=== PATIENT | female | born 1990 | race Caucasian/White ===

== ENCOUNTER 2018-01-24 15:06 | Emergency (ER) | payer BC, MEDICAID ==
[~2018-01-24] VITALS: Ht 180.3 cm; Wt 165.6 kg
[~2018-01-24 15:06] MED LIST: BIRTH CONTROL; ELET20TA PO
[2018-01-24 16:03] VITALS: BP 175/98
[2018-01-24 16:24] LABS: Basophils # (auto) 0.1 uL; Basophils % (auto) 0.5 % (0.0-2.0); Eosinophils # (auto) 0.1 uL; Eosinophils % (auto) 1.5 % (0.0-7.0); Hematocrit 41.6 % (36.0-46.0); Hemoglobin 13.8 g/dL (12.2-16.2); Lymphocytes # (auto) 2.3 uL; Lymphocytes % (auto) 23.7 % (10.0-50.0); Mean Corpuscular Hemoglobin 28.2 pg (28.0-32.0); Mean Corpuscular Hgb Conc. 33.3 g/dL (32.0-36.0); Mean Corpuscular Volume 84.7 fL (80.0-100.0); Monocytes # (auto) 0.6 uL; Monocytes % (auto) 5.9 % (0.0-12.0); Neutrophils # (auto) 6.6 uL; Neutrophils % (auto) 68.4 % (37.0-80.0); Nucleated Red Blood Cells % 0.1 %; Platelet Count (auto) 314 10^3/uL (140-450); Red Blood Cells 4.91 10^6/uL (4.0-5.20); Red Cell Distribution Width 13.3 % (11.8-14.3); White Blood Cell 9.6 10^3/uL (4.4-10.8)
[2018-01-24 16:45] LABS: Urine Bacteria NONE SEEN /hpf (None Seen); Urine Blood 2+ /uL (Negative); Urine Mucus FEW (None Seen); Urine Specific Gravity 1.016 (1.001-1.035); Urine WBC 7 /hpf (0 - 5)
[2018-01-24 16:52] LABS: Albumin 3.5 g/dL (3.4-5.0); Calcium 8.9 mg/dL (8.5-10.1); Potassium 3.9 mmol/L (3.5-5.1)
[2018-01-24 16:56] LABS: BUN/Creatinine Ratio 10.8; Bilirubin, Total 0.4 mg/dL (0.2-1.0); Total Protein 7.7 g/dL (6.4-8.2)
[2018-01-24] MEDS ORDERED: cefTRIAXone SOD 1,000 MG VL IM ONE (17:15)
[2018-01-24] MEDS ORDERED: LIDOCAINE 1%HCL (LOCAL ANESTH) 10 ML MDV ONE (17:17)
[2018-01-24] MEDS ORDERED: cefTRIAXone SOD 1,000 MG VL ONE (17:17)
== END 2018-01-24 17:22 | disposition home or self-care (01) ==
LOC: ER 15:20
DX: N39.0 Urinary tract infection, site not specified (principal); Z88.8 Allergy status to other drugs, medicaments and biological substances; Z87.442 Personal history of urinary calculi
CPT/HCPCS: 36415; 80053; 81001; 85025; 94761; 96372; 99284; J0696; J2001

== ENCOUNTER 2018-07-03 16:08 | Emergency (ER) | payer MEDICAID ==
[~2018-07-03] VITALS: Ht 180.3 cm; Wt 167.8 kg
[2018-07-03 16:17] VITALS: BP 126/68
[2018-07-03 16:41] LABS: Basophils # (auto) 0.1 uL; Basophils % (auto) 0.6 % (0.0-2.0); Eosinophils # (auto) 0.2 uL; Eosinophils % (auto) 1.6 % (0.0-7.0); Lymphocytes # (auto) 2.4 uL; Lymphocytes % (auto) 23.1 % (10.0-50.0); Mean Corpuscular Hemoglobin 28.1 pg (28.0-32.0); Mean Corpuscular Hgb Conc. 33.4 g/dL (32.0-36.0); Mean Corpuscular Volume 84.3 fL (80.0-100.0); Monocytes # (auto) 0.9 uL; Monocytes % (auto) 8.6 % (0.0-12.0); Neutrophils # (auto) 6.9 uL; Neutrophils % (auto) 66.1 % (37.0-80.0); Nucleated Red Blood Cells % 0.1 %; Platelet Count (auto) 343 10^3/uL (140-450); Red Blood Cells 4.99 10^6/uL (4.0-5.20); Red Cell Distribution Width 13.2 % (11.8-14.3); White Blood Cell 10.4 10^3/uL (4.4-10.8)
[2018-07-03 16:44] LABS: Urine Bacteria NONE SEEN /hpf (None Seen); Urine Blood Negative /uL (Negative); Urine Specific Gravity 1.008 (1.001-1.035); Urine WBC 2 /hpf (0 - 5)
[2018-07-03 16:55] LABS: Albumin 3.5 g/dL (3.4-5.0); BUN/Creatinine Ratio 14.5; Calcium 8.8 mg/dL (8.5-10.1); Potassium 3.9 mmol/L (3.5-5.1)
[2018-07-03 16:59] LABS: Bilirubin, Total 0.3 mg/dL (0.2-1.0); Total Protein 7.8 g/dL (6.4-8.2)
== END 2018-07-03 17:40 | disposition left against medical advice (07) ==
LOC: ER 16:12
DX: R10.9 Unspecified abdominal pain (principal); Z53.21 Procedure and treatment not carried out due to patient leaving prior to being seen by health care provider
CPT/HCPCS: 36415; 80053; 81001; 85025

== ENCOUNTER 2018-07-04 07:27 | Inpatient (IN) | payer MEDICAID ==
[~2018-07-04] VITALS: Ht 180.3 cm; Wt 51.7 kg
[2018-07-04] MEDS ORDERED: PANTOPRAZOLE 40 MG/10 ML VIAL IV STA (08:42)
[2018-07-04] MEDS ORDERED: SODIUM CHLORIDE 0.9% 500 ML IVB ONE (08:42)
[2018-07-04] MEDS ORDERED: MORPHINE SULFATE 4 MG/ML SYR/VIAL IV ONE (08:45)
[2018-07-04] MEDS ORDERED: ONDANSETRON HCL 4 MG/2 ML VIAL IV ONE (08:45)
[2018-07-04 09:06] LABS: Basophils # (auto) 0.1 uL; Basophils % (auto) 1.1 % (0.0-2.0); Eosinophils # (auto) 0.1 uL; Eosinophils % (auto) 1.2 % (0.0-7.0); Hematocrit 42.3 % (36.0-46.0); Hemoglobin 13.5 g/dL (12.2-16.2); Lymphocytes # (auto) 2.1 uL; Lymphocytes % (auto) 23.1 % (10.0-50.0); Mean Corpuscular Hemoglobin 28.1 pg (28.0-32.0); Mean Corpuscular Hgb Conc. 31.9 g/dL (32.0-36.0); Monocytes # (auto) 0.6 uL; Monocytes % (auto) 6.2 % (0.0-12.0); Neutrophils # (auto) 6.3 uL; Neutrophils % (auto) 68.4 % (37.0-80.0); Nucleated Red Blood Cells % 0.1 %; Platelet Count (auto) 382 10^3/uL (140-450); Red Blood Cells 4.81 10^6/uL (4.0-5.20); Red Cell Distribution Width 13.3 % (11.8-14.3); White Blood Cell 9.3 10^3/uL (4.4-10.8)
[2018-07-04 09:23] LABS: Albumin 3.2 g/dL (3.4-5.0); Calcium 8.5 mg/dL (8.5-10.1); Potassium 4.4 mmol/L (3.5-5.1)
[2018-07-04 09:26] LABS: BUN/Creatinine Ratio 13.7; Bilirubin, Total 0.2 mg/dL (0.2-1.0); Total Protein 7.3 g/dL (6.4-8.2)
[2018-07-04] MEDS ORDERED: TEMAZEPAM 15 MG CAP PO PRN (10:30)
[2018-07-04] MEDS ORDERED: PROMETHAZINE HCL 25 MG/ML 1ML IV PRN (10:30)
[2018-07-04] MEDS ORDERED: ACETAMINOPHEN 500 MG TAB PO PRN (10:30)
[2018-07-04 10:40] LABS: Urine WBC None Seen /hpf (0 - 5)
[2018-07-04] MEDS: SODIUM CHLORIDE 0.9% 1,000 ML IV SCH ×2 (10:45→20:18)
[2018-07-04 10:47] LABS: Urine Bacteria NONE SEEN /hpf (None Seen); Urine Blood Negative /uL (Negative); Urine Specific Gravity 1.007 (1.001-1.035)
[2018-07-04 14:30] VITALS: BP 116/67
--- NOTE | 2018-07-04 14:30 | NUR ---
MS admit from ER BEBRENT admitted to tele/MS after SBAR received. Patient oriented to ELADIA AMEZQUITA, primary RN, unit, room, bed, and unit policies regarding patient care and visiting hours. Patient weighed by bed scale and encouraged to call if they need something. All questions and concerns addressed, patient verbalized understanding.
--- NOTE | 2018-07-04 14:53 | NUR ---
Paged Dr. Andres Maxwell regarding Sx consult, spoke to Dl.
[2018-07-04] MEDS: traMADol HCL 50 MG TAB PO PRN (16:01)
--- NOTE | 2018-07-04 16:50 | NUR ---
Dr. Andres Maxwell at bedside discussed with patient, received new orders, noted and carried out.
[2018-07-04] MEDS ORDERED: KETOROLAC TROMETH 30 MG/ML 1ML VIAL IV PRN (17:00)
--- NOTE | 2018-07-04 19:30 | NUR ---
RECEIVED PATIENT LYING IN BED, AWAKE, ALERT, ORIENTED X4. NO S/S OF RESPIRATORY DISTRESS, DENIES SOB AND CHEST PAIN. ORIENTED ON PLAN OF CARE. BED IS LOCKED AND IN LOWEST LEVEL, SIDE RAILS UP X2, CALL LIGHT WITHIN REACH. WILL CONTINUE TO MONITOR
[2018-07-04] MEDS: FAMOTIDINE 20 MG TAB PO SCH (21:37)
[2018-07-04 22:00] VITALS: BP 117/60
[2018-07-05] MEDS: SODIUM CHLORIDE 0.9% 1,000 ML IV SCH (00:33)
[2018-07-05 04:54] VITALS: BP 90/55
[2018-07-05 06:35] VITALS: BP 105/61
--- NOTE | 2018-07-05 07:03 | NUR ---
CARE ENDORSED TO AM SHIFT RN
--- NOTE | 2018-07-05 08:00 | NUR ---
Opening Shift Note Assumed care of patient, awake and alert. No S/S of distress/SOB or pain. Instructed on POC and to call for assist PRN, will continue to monitor for changes Q1hr and PRN.
[2018-07-05 08:15] VITALS: BP 135/79
[2018-07-05] MEDS: FAMOTIDINE 20 MG TAB PO SCH ×2 (09:10→22:04)
[2018-07-05 13:00] VITALS: BP 134/85
[2018-07-05 17:00] VITALS: BP 147/78
--- NOTE | 2018-07-05 17:22 | NUR ---
IV insertion IV access obtained, via clean sterile technique by inserting 22 gauge catheter at after attempt(s). IV secured properly. No trauma to site. Patient tolerated procedure well.
--- NOTE | 2018-07-05 19:20 | NUR ---
Opening Shift Note Received report from Caro ESPARZA. Assumed care of patient, awake and alert, mother at bedside. No S/S of distress/SOB or pain. Instructed on POC and to call for assist PRN, will continue to monitor for changes Q1hr and PRN.
[2018-07-05] MEDS: traMADol HCL 50 MG TAB PO PRN (20:20)
[2018-07-05 22:00] VITALS: BP 91/54
[2018-07-06 04:30] VITALS: BP 95/54
[2018-07-06 06:49] LABS: Bilirubin, Direct 0.1 mg/dL (0-0.2)
[2018-07-06 06:52] LABS: Bilirubin, Total 0.4 mg/dL (0.2-1.0); Total Protein 6.6 g/dL (6.4-8.2)
[2018-07-06 08:30] VITALS: BP 112/53
--- NOTE | 2018-07-06 08:30 | NUR ---
Opening Shift Note Assumed care of patient, awake and alert, oriented x 4 and verbally responsive. Respiratory even and unlabored. No S/S of distress/SOB or pain. Skin is warm and dry to touch. Instructed on POC and to call for assist PRN, will continue to monitor for changes Q1hr and PRN.
[2018-07-06] MEDS: FAMOTIDINE 20 MG TAB PO SCH ×2 (09:19→21:48)
[2018-07-06 12:17] VITALS: BP 104/64
[2018-07-06 16:41] VITALS: BP 116/68
--- NOTE | 2018-07-06 19:15 | NUR ---
Opening Shift Note Received report from Caro ESPARZA. Assumed care of patient, awake and alert. No S/S of distress/SOB or pain. Instructed on POC and to call for assist PRN, will continue to monitor for changes Q1hr and PRN.
[2018-07-06 22:00] VITALS: BP 101/68
--- NOTE | 2018-07-06 23:20 | NUR ---
Patient was awaken by her nose bleeding, states this is not the first time but the last time was when she was still a teenager. Ice pack placed over the nose area to stop bleeding, will continue to monitor.
--- NOTE | 2018-07-06 23:35 | NUR ---
Dr. Campos at bedside.
--- NOTE | 2018-07-06 23:55 | NUR ---
Nose bleeding resolved per patient. Instructed nothing by mouth after midnight for HIDA scan tomorrow, patient verbalized understanding.
[2018-07-07 05:00] VITALS: BP 93/56
[2018-07-07 06:31] LABS: Basophils # (auto) 0 uL; Basophils % (auto) 0.6 % (0.0-2.0); Eosinophils # (auto) 0.1 uL; Eosinophils % (auto) 0.9 % (0.0-7.0); Hematocrit 37.7 % (36.0-46.0); Hemoglobin 12.8 g/dL (12.2-16.2); Lymphocytes # (auto) 1.9 uL; Lymphocytes % (auto) 22.5 % (10.0-50.0); Mean Corpuscular Hemoglobin 28.1 pg (28.0-32.0); Mean Corpuscular Hgb Conc. 33.9 g/dL (32.0-36.0); Mean Corpuscular Volume 82.8 fL (80.0-100.0); Monocytes # (auto) 0.6 uL; Monocytes % (auto) 7.7 % (0.0-12.0); Neutrophils # (auto) 5.7 uL; Neutrophils % (auto) 68.3 % (37.0-80.0); Nucleated Red Blood Cells % 0.1 %; Platelet Count (auto) 286 10^3/uL (140-450); Red Blood Cells 4.55 10^6/uL (4.0-5.20); Red Cell Distribution Width 13.2 % (11.8-14.3); White Blood Cell 8.3 10^3/uL (4.4-10.8)
[2018-07-07 06:41] LABS: INR 1.07 (0.9-1.15); Partial Thromboplastin Time 30.7 sec (23.78-33.04); Prothrombin Time 11.4 sec (9.27-12.13)
[2018-07-07 06:46] LABS: Albumin 3.1 g/dL (3.4-5.0); Calcium 8.5 mg/dL (8.5-10.1); Potassium 3.8 mmol/L (3.5-5.1)
[2018-07-07 06:51] LABS: BUN/Creatinine Ratio 9.6; Bilirubin, Total 0.4 mg/dL (0.2-1.0)
[2018-07-07 08:00] VITALS: BP 113/70
[2018-07-07 08:30] VITALS: BP 113/70
[2018-07-07] MEDS: FAMOTIDINE 20 MG TAB PO SCH ×2 (09:17→22:09)
[2018-07-07 12:16] VITALS: BP 123/75
[2018-07-07 16:28] VITALS: BP 138/78
[2018-07-07 22:00] VITALS: BP 114/65
[2018-07-08 05:31] VITALS: BP 103/57
[2018-07-08 08:00] VITALS: BP 128/70
[2018-07-08 08:30] VITALS: BP 128/70
[2018-07-08] MEDS: FAMOTIDINE 20 MG TAB PO SCH (09:51)
--- NOTE | 2018-07-08 12:08 | NUR ---
Nutrition Assessment Notes please see attached link for complete assessment Est. Needs ABW [id number] kcal (17-20 kcal/kgBW), 119-130 gms pro (1.0-1.1 gm/kgBW). Will continue to monitor pertinent labs and reassess nutrient need prn. Addendum: 07/08/18 at [address] Amended: Links added.
[2018-07-08 13:31] VITALS: BP 156/75
[2018-07-08 14:20] VITALS: BP 128/70
--- NOTE | 2018-07-08 15:25 | NUR ---
PATIENT DISCHARGED HOME. ALL DISCHARGE PAPERWORK SIGNED AND DISCHARGE INSTRUCTIONS GIVEN. PATIENT ALERT AND ORIENTED
== END 2018-07-08 15:25 | disposition home or self-care (01) ==
LOC: ER 07:27 → OVERFLOW 10:20 → CENTRAL 14:26
PROVIDERS: ADMIT Internal Medicine; ATTEND Hospitalist
DX: K80.20 Calculus of gallbladder without cholecystitis without obstruction (principal); K76.0 Fatty (change of) liver, not elsewhere classified; E44.1 Mild protein-calorie malnutrition; E66.01 Morbid (severe) obesity due to excess calories; N83.209 Unspecified ovarian cyst, unspecified side; F32.9 Major depressive disorder, single episode, unspecified; Z68.25 Body mass index [BMI] 25.0-25.9, adult; Z87.442 Personal history of urinary calculi; Z87.440 Personal history of urinary (tract) infections
CPT/HCPCS: 36415; 76705; 78226; 80053; 80076; 81001; 82150; 83690; 85025; 85610; 85730; 94761; 96361; 96374; A6257; C9113; G0378; J1885; J2405

== ENCOUNTER → 2020-10-28 | Emergency (ER) | payer SELFPAY ==
[~2020-10-28] VITALS: Ht 182.9 cm; Wt 192.8 kg
[2020-10-28 19:53] VITALS: BP 154/88
== END | disposition left against medical advice (07) ==
LOC: ER 19:47
DX: F41.1 Generalized anxiety disorder (principal); Z53.21 Procedure and treatment not carried out due to patient leaving prior to being seen by health care provider

== ENCOUNTER 2021-02-06 07:14 | Emergency (ER) | payer MEDICAID ==
[~2021-02-06] VITALS: Ht 182.9 cm; Wt 181.4 kg
[2021-02-06 10:42] VITALS: BP 156/84
[2021-02-06] MEDS ORDERED: methylPREDNISolone SOD SUCC 125 MG/2 ML VL IM ONE (10:45)
[2021-02-06] MEDS ORDERED: cefTRIAXone SOD 1,000 MG VL IM ONE (10:45)
[2021-02-06] MEDS ORDERED: LIDOCAINE 1% HCL (LOCAL ANESTH.) INJ 20ML MDV ONE (10:52)
[2021-02-06] MEDS ORDERED: LIDOCAINE 1% HCL (LOCAL ANESTH.) INJ 20ML MDV ID ONE (11:00)
== END 2021-02-06 11:19 | disposition home or self-care (01) ==
LOC: ER 07:14
DX: J06.9 Acute upper respiratory infection, unspecified (principal); Z87.891 Personal history of nicotine dependence; Z20.822 Contact with and (suspected) exposure to COVID-19
CPT/HCPCS: 36415; 71045; 87426; 96372; 99284; J0696; J2001; J2930

== ENCOUNTER 2021-05-04 07:14 | Emergency (ER) | payer MEDICAID ==
[~2021-05-04] VITALS: Ht 182.9 cm; Wt 170.1 kg
[2021-05-04 07:29] VITALS: BP 171/93
[2021-05-04] MEDS ORDERED: KETOROLAC TROMETH 60MG/2ML VIAL IM ONE (07:45)
[2021-05-04] MEDS ORDERED: IBUP800T27 PO (08:31)
[2021-05-04] MEDS ORDERED: METH750T22 PO (08:31)
== END 2021-05-04 08:37 | disposition home or self-care (01) ==
LOC: ER 07:14
DX: M23.91 Unspecified internal derangement of right knee (principal); E66.01 Morbid (severe) obesity due to excess calories; Z68.43 Body mass index [BMI] 50.0-59.9, adult; Z87.891 Personal history of nicotine dependence; Z90.49 Acquired absence of other specified parts of digestive tract; Z87.442 Personal history of urinary calculi
CPT/HCPCS: 73562; 73630; 96372; 99284; J1885

== ENCOUNTER 2021-05-20 18:24 | Emergency (ER) | payer MEDICAID ==
[~2021-05-20] VITALS: Ht 182.9 cm; Wt 181.4 kg
[~2021-05-20 18:24] MED LIST changes: +IBUP800T27 PO; +METH750T22 PO
[2021-05-20 19:46] VITALS: BP 162/96
[2021-05-20] MEDS ORDERED: ALBUAER3 IN (20:15)
== END 2021-05-20 21:17 | disposition home or self-care (01) ==
LOC: ER 18:29
DX: R05.9 Cough, unspecified (principal); E66.01 Morbid (severe) obesity due to excess calories; Z68.43 Body mass index [BMI] 50.0-59.9, adult; Z90.49 Acquired absence of other specified parts of digestive tract; Z87.891 Personal history of nicotine dependence
CPT/HCPCS: 71045

== ENCOUNTER 2022-10-02 22:09 | Emergency (ER) | payer MEDICAID ==
[~2022-10-02] VITALS: Ht 182.9 cm; Wt 181.8 kg
[~2022-10-02 22:09] MED LIST changes: +ALBUAER3 IN; +IBUP-1456 PO; -IBUP800T27 PO; +METH-1182 PO; -METH750T22 PO
[2022-10-02 23:26] LABS: Basophils # (auto) 0.1 10 ^3/uL (0-0.2); Basophils % (auto) 0.7 % (0.0-2.0); Eosinophils # (auto) 0.2 10 ^3/uL (0-0.8); Eosinophils % (auto) 1.9 % (0.0-7.0); Hematocrit 37.2 % (36.0-46.0); Hemoglobin 12.5 g/dL (12.2-16.2); Lymphocytes # (auto) 2.7 10 ^3/uL (0.4-5.4); Lymphocytes % (auto) 27.3 % (10.0-50.0); Mean Corpuscular Hemoglobin 27.8 pg (28.0-32.0); Mean Corpuscular Hgb Conc. 33.6 g/dL (32.0-36.0); Mean Corpuscular Volume 82.9 fL (80.0-100.0); Monocytes # (auto) 0.9 10 ^3/uL (0-1.3); Monocytes % (auto) 9.3 % (0.0-12.0); Neutrophils # (auto) 6.1 10 ^3/uL (1.6-8.6); Neutrophils % (auto) 60.8 % (37.0-80.0); Nucleated Red Blood Cells % 0.1 %; Red Blood Cells 4.48 10^6/uL (4.0-5.20); Red Cell Distribution Width 13.8 % (11.8-14.3)
[2022-10-02 23:40] LABS: Albumin 3.1 g/dL (3.4-5.0); Calcium 8.5 mg/dL (8.5-10.1); Potassium 3.8 mmol/L (3.5-5.1)
[2022-10-02 23:43] LABS: BUN/Creatinine Ratio 18.1 (10.0-20.0); Bilirubin, Total 0.2 mg/dL (0.2-1.0); Total Protein 7.3 g/dL (6.4-8.2)
[2022-10-03 02:30] VITALS: BP 142/91
== END 2022-10-03 02:40 | disposition home or self-care (01) ==
LOC: ER 22:09
DX: N93.8 Other specified abnormal uterine and vaginal bleeding (principal); R10.2 Pelvic and perineal pain; Z87.442 Personal history of urinary calculi; Z90.49 Acquired absence of other specified parts of digestive tract; Z87.891 Personal history of nicotine dependence; Z88.6 Allergy status to analgesic agent
CPT/HCPCS: 36415; 76830; 76856; 80053; 84702; 85025

== ENCOUNTER 2023-07-30 14:55 | Emergency (ER) | payer MEDICAID ==
[~2023-07-30] VITALS: Ht 182.9 cm; Wt 177.0 kg
[2023-07-30 14:55] VITALS: BP 141/93; PULSE 122; RESP 20; O2SAT 99
[2023-07-30 16:36] LABS: Basophils # (auto) 0.1 10 ^3/uL (0-0.2); Basophils % (auto) 0.4 % (0.0-2.0); Eosinophils # (auto) 0.1 10 ^3/uL (0-0.8); Eosinophils % (auto) 0.4 % (0.0-7.0); Hematocrit 44.5 % (36.0-46.0); Hemoglobin 14.5 g/dL (12.2-16.2); Lymphocytes # (auto) 1.7 10 ^3/uL (0.4-5.4); Lymphocytes % (auto) 11.7 % (10.0-50.0); Mean Corpuscular Hemoglobin 26.2 pg (28.0-32.0); Mean Corpuscular Hgb Conc. 32.6 g/dL (32.0-36.0); Mean Corpuscular Volume 80.3 fL (80.0-100.0); Monocytes % (auto) 6.9 % (0.0-12.0); Neutrophils % (auto) 80.6 % (37.0-80.0); Nucleated Red Blood Cells % 0.2 %; Red Blood Cells 5.54 10^6/uL (4.0-5.20); Red Cell Distribution Width 14.2 % (11.8-14.3); White Blood Cell 14.9 10^3/uL (4.4-10.8)
[2023-07-30 16:55] LABS: Alanine Aminotransferase 39 U/L (7-40); Albumin 4.7 g/dL (3.2-4.8); Alkaline Phosphatase 93 U/L (46-116); Anion Gap 9 (5-15); Aspartate Aminotransferase 19 U/L (13-40); Bilirubin, Total 0.7 mg/dL (0.2-1.0); Blood Urea Nitrogen 9 mg/dL (9-23); Carbon Dioxide 25 mmol/L (20-30); Chloride 105 mmol/L (98-107); Glucose 115 mg/dL (74-106); Potassium 3.7 mmol/L (3.5-5.1); Sodium 139 mmol/L (136-145); Total Protein 7.9 g/dL (5.7-8.2)
[2023-07-30] MEDS: KETOROLAC TROMETH 30 MG/ML 1ML VIAL IV ONE (17:16)
[2023-07-30] MEDS: ONDANSETRON HCL 4 MG/2 ML VIAL IV ONE (17:16)
[2023-07-30] MEDS: SODIUM CHLORIDE 0.9% 1,000 ML IV ONE (17:17)
[2023-07-30 18:15] LABS: Urine Bacteria FEW /hpf (None Seen); Urine Blood Negative /uL (Negative); Urine Clarity Clear (Clear); Urine Color Yellow (Yellow); Urine Mucus FEW (None Seen); Urine Protein, UAD 1+ (Negative); Urine Specific Gravity 1.026 (1.001-1.035); Urine Urobilinogen 2 mg/dL (Negative); Urine WBC <1 /hpf (0 - 5)
[2023-07-30] MEDS ORDERED: ZOFR4T PO (19:23)
[2023-07-30] MEDS ORDERED: NITR-87 PO (19:23)
== END 2023-07-30 20:08 | disposition home or self-care (01) ==
LOC: ER 14:55
DX: K52.9 Noninfective gastroenteritis and colitis, unspecified (principal); N39.0 Urinary tract infection, site not specified; Z87.442 Personal history of urinary calculi; Z98.890 Other specified postprocedural states; Z87.891 Personal history of nicotine dependence; Z88.8 Allergy status to other drugs, medicaments and biological substances; Z79.899 Other long term (current) drug therapy
CPT/HCPCS: 36415; 80053; 81001; 85025; 96361; 96374; 96375; 99284; J1885; J2405; J7030

== ENCOUNTER 2023-07-31 06:37 | Inpatient (IN) | payer MEDICAID ==
[~2023-07-31] VITALS: Ht 182.9 cm; Wt 184.9 kg
[~2023-07-31 06:37] MED LIST changes: +NITR-87 PO; +ZOFR4T PO
[2023-07-31 07:44] LABS: Eosinophils # (auto) 0.1 10 ^3/uL (0-0.8); Hemoglobin 14.2 g/dL (12.2-16.2); Lymphocytes # (auto) 1.4 10 ^3/uL (0.4-5.4); Mean Corpuscular Hemoglobin 26.5 pg (28.0-32.0); Neutrophils % (auto) 80.2 % (37.0-80.0)
[2023-07-31 07:46] LABS: Basophils # (auto) 0 10 ^3/uL (0-0.2); Basophils % (auto) 0.3 % (0.0-2.0); Eosinophils % (auto) 0.9 % (0.0-7.0); Hematocrit 43.6 % (36.0-46.0); Lymphocytes % (auto) 10.9 % (10.0-50.0); Mean Corpuscular Hgb Conc. 32.6 g/dL (32.0-36.0); Mean Corpuscular Volume 81.2 fL (80.0-100.0); Monocytes % (auto) 7.7 % (0.0-12.0); Neutrophils # (auto) 10.7 10 ^3/uL (1.6-8.6); Nucleated Red Blood Cells % 0.1 %; Red Blood Cells 5.37 10^6/uL (4.0-5.20); Red Cell Distribution Width 14.1 % (11.8-14.3); White Blood Cell 13.3 10^3/uL (4.4-10.8)
[2023-07-31 07:58] LABS: Alanine Aminotransferase 37 U/L (7-40); Albumin 4.6 g/dL (3.2-4.8); Alkaline Phosphatase 89 U/L (46-116); Anion Gap 8 (5-15); Aspartate Aminotransferase 20 U/L (13-40); BUN/Creatinine Ratio 18.6 (10.0-20.0); Bilirubin, Total 0.8 mg/dL (0.2-1.0); Blood Urea Nitrogen 13 mg/dL (9-23); Calcium 9.6 mg/dL (8.5-10.1); Carbon Dioxide 25 mmol/L (20-30); Chloride 105 mmol/L (98-107); Glucose 126 mg/dL (74-106); Magnesium 1.9 mg/dL (1.6-2.6); Potassium 3.8 mmol/L (3.5-5.1); Sodium 138 mmol/L (136-145)
[2023-07-31 07:59] LABS: Total Protein 7.7 g/dL (5.7-8.2)
[2023-07-31] MEDS: IOHEXOL 300 MG/ML 100ML BOTTLE IJ ONE (08:58)
[2023-07-31] MEDS ORDERED: DOCUSATE SOD 100 MG CAP PO PRN (12:30)
[2023-07-31] MEDS ORDERED: DEXTROSE (50%) 50ML SYRG IV PRN (12:30)
[2023-07-31] MEDS ORDERED: NITROGLYCERIN 0.4 MG SL TAB SL PRN (12:30)
[2023-07-31] MEDS ORDERED: MORPHINE SULFATE INJ 2 MG/ml SYRG IV PRN (12:30)
[2023-07-31 12:38] LABS: Lipase 38 U/L (12-53)
[2023-07-31] MEDS: metroNIDAZOLE 500MG/100ML 100 ML IV SCH (14:00)
[2023-07-31] MEDS: ONDANSETRON HCL 4 MG/2 ML VIAL IV ONE (15:15)
[2023-07-31] MEDS: SODIUM CHLORIDE 0.9% 1,000 ML IVB ONE (15:15)
[2023-07-31] MEDS: PANTOPRAZOLE 40 MG/10 ML VIAL INJ IV ONE (15:16)
[2023-07-31] MEDS: GASTROGRAFIN 120 ML SOL ONE (17:11)
[2023-07-31] MEDS: HYDROmorphone HCL 2 MG/ML VL/or syr IV ONE (17:16)
[2023-07-31] MEDS: ONDANSETRON HCL 4 MG/2 ML VIAL IV PRN (17:33)
[2023-07-31] MEDS: KETOROLAC TROMETH 30 MG/ML 1ML VIAL IV ONE (17:34)
[2023-07-31] MEDS: SODIUM CHLORIDE 0.9% 1,000 ML IV SCH (17:34)
[2023-07-31] MEDS: cefTRIAXone 1GM/50ML D5W 50 ML IV ONE (17:34)
[2023-07-31 18:00] VITALS: PULSE 96; RESP 16; O2SAT 94
[2023-07-31] MEDS: ACCU-CHEK COMFORT CURVE STRIP VI SCH (18:00)
[2023-07-31] MEDS: metroNIDAZOLE 500MG/100ML 100 ML IV ONE (18:43)
[2023-07-31] MEDS: MORPHINE SULFATE INJ 2 MG/ml SYRG IV PRN (18:51)
[2023-08-01] VITALS (9 sets, daily range): BP systolic 94–153; BP diastolic 56–97; PULSE 92–115; RESP 16–18; TEMP 97.8–99.1; O2SAT 92–96
[2023-08-01 03:32] LABS: Urine Bacteria FEW /hpf (None Seen); Urine Blood TRACE /uL (Negative); Urine Clarity Turbid (Clear); Urine Color Yellow (Yellow); Urine Mucus FEW (None Seen); Urine Protein, UAD 2+ (Negative); Urine Urobilinogen 3 mg/dL (Negative); Urine WBC 18 /hpf (0 - 5)
[2023-08-01 03:37] LABS: Urine Specific Gravity 1.045 (1.001-1.035)
[2023-08-01 08:16] LABS: Basophils # (auto) 0 10 ^3/uL (0-0.2); Basophils % (auto) 0.2 % (0.0-2.0); Eosinophils # (auto) 0.1 10 ^3/uL (0-0.8); Eosinophils % (auto) 0.6 % (0.0-7.0); Hemoglobin 13.6 g/dL (12.2-16.2); Nucleated Red Blood Cells % 0.1 %; Red Blood Cells 5.18 10^6/uL (4.0-5.20)
[2023-08-01 08:21] LABS: Hematocrit 42.1 % (36.0-46.0); Lymphocytes # (auto) 1.5 10 ^3/uL (0.4-5.4); Lymphocytes % (auto) 13.6 % (10.0-50.0); Mean Corpuscular Hemoglobin 26.3 pg (28.0-32.0); Mean Corpuscular Hgb Conc. 32.3 g/dL (32.0-36.0); Mean Corpuscular Volume 81.3 fL (80.0-100.0); Monocytes # (auto) 1.1 10 ^3/uL (0-1.3); Monocytes % (auto) 9.5 % (0.0-12.0); Neutrophils # (auto) 8.6 10 ^3/uL (1.6-8.6); Neutrophils % (auto) 76.1 % (37.0-80.0); Red Cell Distribution Width 14.3 % (11.8-14.3); White Blood Cell 11.3 10^3/uL (4.4-10.8)
[2023-08-01 08:33] LABS: Alanine Aminotransferase 28 U/L (7-40); Albumin 4.3 g/dL (3.2-4.8); Alkaline Phosphatase 85 U/L (46-116); Anion Gap 10 (5-15); Aspartate Aminotransferase 15 U/L (13-40); BUN/Creatinine Ratio 22.2 (10.0-20.0); Bilirubin, Total 0.6 mg/dL (0.2-1.0); Blood Urea Nitrogen 14 mg/dL (9-23); Calcium 9.5 mg/dL (8.5-10.1); Carbon Dioxide 24 mmol/L (20-30); Chloride 108 mmol/L (98-107); Glucose 108 mg/dL (74-106); Potassium 3.6 mmol/L (3.5-5.1); Sodium 142 mmol/L (136-145); Total Protein 7.2 g/dL (5.7-8.2)
[2023-08-01] MEDS: cefTRIAXone 1GM/50ML D5W 50 ML IV SCH (08:52)
[2023-08-01] MEDS: PANTOPRAZOLE 40 MG/10 ML VIAL INJ IV SCH (08:53)
[2023-08-02] VITALS (7 sets, daily range): BP systolic 106–126; BP diastolic 56–82; PULSE 79–92; RESP 18–21; TEMP 97.7–98.7; O2SAT 92–98
[2023-08-03 01:00] VITALS: BP 115/55; PULSE 84; RESP 21; TEMP 96.2; O2SAT 94
[2023-08-03 05:00] VITALS: BP 126/72; PULSE 77; RESP 19; TEMP 96; O2SAT 94
[2023-08-03 08:00] VITALS: PULSE 78
[2023-08-03 08:58] VITALS: BP 124/71; PULSE 83; RESP 20; TEMP 98.5; O2SAT 98
[2023-08-03 13:00] VITALS: BP 124/73; PULSE 82; RESP 18; TEMP 97.9; O2SAT 98
[2023-08-03] MEDS ORDERED: ZOFR4T PO (14:41)
[2023-08-03] MEDS: KETOROLAC TROMETH 30 MG/ML 1ML VIAL IV ONE (15:00)
== END 2023-08-03 15:15 | disposition home or self-care (01) | DRG 254 ==
LOC: ER 06:37 → TELE-WESTW 12:19 → TELE 12:19 → TELE-WESTW 23:03
PROVIDERS: ADMIT Internal Medicine; ATTEND Internal Medicine
PROC: 0D9670Z Drainage of Stomach with Drainage Device, Via Natural or Artificial Opening (ICD-10-PCS; principal; 2023-07-31)
DX: K42.0 Umbilical hernia with obstruction, without gangrene (principal); Z68.43 Body mass index [BMI] 50.0-59.9, adult; D72.829 Elevated white blood cell count, unspecified; I10 Essential (primary) hypertension; E66.01 Morbid (severe) obesity due to excess calories; Z87.442 Personal history of urinary calculi; Z88.8 Allergy status to other drugs, medicaments and biological substances; Z79.899 Other long term (current) drug therapy; Z90.49 Acquired absence of other specified parts of digestive tract; Z87.891 Personal history of nicotine dependence; Z83.3 Family history of diabetes mellitus
CPT/HCPCS: 36415; 71045; 71046; 74177; 74250; 80053; 81001; 82962; 83690; 83735; 84702; 85025; C9113; G0378; J1885; J2405; J3490

== ENCOUNTER 2023-11-12 19:01 | Emergency (ER) | payer MEDICAID ==
[~2023-11-12] VITALS: Ht 180.3 cm; Wt 175.6 kg
[~2023-11-12 19:01] MED LIST changes: -BIRTH CONTROL; -ELET20TA PO
[2023-11-12] MEDS ORDERED: IBUP-1456 PO (22:38)
[2023-11-12] MEDS ORDERED: CYCL-614 PO (22:39)
[2023-11-12] MEDS: KETOROLAC TROMETH 60MG/2ML VIAL IM ONE (23:01)
[2023-11-12 23:05] VITALS: BP 147/89; PULSE 88; RESP 20; TEMP 98; O2SAT 99
== END 2023-11-12 23:18 | disposition home or self-care (01) ==
LOC: ER 19:01
DX: S16.1XXA Strain of muscle, fascia and tendon at neck level, initial encounter (principal); S40.011A Contusion of right shoulder, initial encounter; F12.10 Cannabis abuse, uncomplicated; Z87.442 Personal history of urinary calculi; Z87.440 Personal history of urinary (tract) infections; Z90.49 Acquired absence of other specified parts of digestive tract; Z87.891 Personal history of nicotine dependence; V43.62XA Car passenger injured in collision with other type car in traffic accident, initial encounter; Y93.89 Activity, other specified; Y92.488 Other paved roadways as the place of occurrence of the external cause; Y99.8 Other external cause status
CPT/HCPCS: 73000; 96372; 99283; J1885

== ENCOUNTER 2023-12-05 16:59 | Emergency (ER) | payer MEDICAID ==
[~2023-12-05] VITALS: Ht 182.9 cm; Wt 176.0 kg
[~2023-12-05 16:59] MED LIST changes: +CYCL-614 PO
[2023-12-05 18:31] LABS: Urine Bacteria None Seen /hpf (None Seen)
[2023-12-05 19:01] LABS: Urine Blood Negative /uL (Negative); Urine Clarity Clear (Clear); Urine Color Colorless (Yellow); Urine Protein, UAD Negative (Negative); Urine Specific Gravity 1.006 (1.001-1.035); Urine Urobilinogen Normal (Negative); Urine WBC 1 /hpf (0 - 5); Urine pH 6.5 (5.0-9.0)
[2023-12-05 19:13] LABS: Basophils # (auto) 0.1 10 ^3/uL (0-0.2); Basophils % (auto) 0.6 % (0.0-2.0); Eosinophils # (auto) 0.2 10 ^3/uL (0-0.8); Hemoglobin 13.6 g/dL (12.2-16.2); Monocytes # (auto) 0.9 10 ^3/uL (0-1.3); Neutrophils # (auto) 5.9 10 ^3/uL (1.6-8.6); Neutrophils % (auto) 58.9 % (37.0-80.0)
[2023-12-05 19:14] LABS: Eosinophils % (auto) 2.1 % (0.0-7.0); Hematocrit 40.3 % (36.0-46.0); Lymphocytes # (auto) 2.9 10 ^3/uL (0.4-5.4); Mean Corpuscular Hemoglobin 27.6 pg (28.0-32.0); Mean Corpuscular Hgb Conc. 33.8 g/dL (32.0-36.0); Mean Corpuscular Volume 81.7 fL (80.0-100.0); Monocytes % (auto) 9.4 % (0.0-12.0); Platelet Count (auto) 328 10^3/uL (140-450); Red Blood Cells 4.94 10^6/uL (4.0-5.20); White Blood Cell 9.9 10^3/uL (4.4-10.8)
[2023-12-05 19:32] LABS: Chloride 106 mmol/L (98-107); Potassium 3.8 mmol/L (3.5-5.1); Sodium 144 mmol/L (136-145)
[2023-12-05 19:33] LABS: Anion Gap 6 (5-15); Carbon Dioxide 32 mmol/L (20-30)
[2023-12-05 19:34] LABS: Calcium 9.6 mg/dL (8.7-10.4)
[2023-12-05 19:38] LABS: Glucose 68 mg/dL (74-106)
[2023-12-05 19:39] LABS: BUN/Creatinine Ratio 15.4 (10.0-20.0); Blood Urea Nitrogen 10 mg/dL (9-23)
[2023-12-05 20:55] VITALS: BP 117/75; PULSE 77; RESP 18; TEMP 98.1; O2SAT 99
[2023-12-05] MEDS: KETOROLAC TROMETH 30 MG/ML 1ML VIAL IV ONE (21:02)
== END 2023-12-05 21:20 | disposition home or self-care (01) ==
LOC: ER 16:59
DX: K43.9 Ventral hernia without obstruction or gangrene (principal); R10.2 Pelvic and perineal pain; F12.10 Cannabis abuse, uncomplicated; Z88.6 Allergy status to analgesic agent; Z90.49 Acquired absence of other specified parts of digestive tract; Z87.891 Personal history of nicotine dependence; Z87.442 Personal history of urinary calculi
CPT/HCPCS: 36415; 74176; 80048; 81001; 84702; 85025; 96374; 99285; J1885

== ENCOUNTER 2024-07-25 19:24 | Emergency (ER) | payer MEDICAID ==
[~2024-07-25] VITALS: Ht 182.9 cm; Wt 161.7 kg
--- NOTE | 2024-07-25 20:02 | ED.PDOC ---
History of Present Illness(SKN HPI Comments Pt arrived in ER after being bitten by her personal dog while at home. VSS. No distress present. No active bleeding. Pt has minor superfical lac to left pinky and brusing to her right pointer finger. Per pt two of her dogs a smaller one and a pitbull who are up to date with their shots were fighting over food and she tried to intervene. Pt in 10/01 pain. Denies numbness or weakness fever or chills reports no nausea or vomiting or any other known injuries. Chief Complaint: Animal Bite Time Seen by MD: 19:33 Primary Care Provider: Sulema History of Present Illness: Nurses Notes, Medications, Allergies Allergies: Coded Allergies: Gemfibrozil (Verified Allergy, Unknown, 07/04/18) Home Meds Active Scripts Amoxicillin & Pot Clavulanate (AUGMENTIN TABLET) 875 Mg Tb, 875 MG PO BID for 7 Days, #14 TAB Prov:MADDY BALDWIN HEALTH ECONOMIST 07/25/24 Cyclobenzaprine HCl (Cyclobenzaprine Hydrochlo) 5 Mg Tab, 5 MG PO QHSP, #14 TAB 0 Refills Prov:LOUIS MORGAN 11/12/23 Ibuprofen (Ibuprofen) 800 Mg Tab, 1 TAB PO TID PRN, #30 TAB 0 Refills Prov:LOUIS MORGAN 11/12/23 Ondansetron Odt 4MG Tab (ZOFRAN PO) 4 Mg Tb, 4 MG PO Q8HPRN PRN, #30 TAB ODT TAB-DISSOLVE IN MOUTH, THEN SWALLOW Prov:LIZZIE BOYER MD 08/03/23 Ondansetron Odt 4MG Tab (ZOFRAN PO) 4 Mg Tb, 4 MG PO TID PRN, #20 TAB ODT TAB-DISSOLVE IN MOUTH, THEN SWALLOW Prov:CARMINE VANEGASP 07/30/23 Nitrofurantoin Monohydrate Mac (Macrobid) 100 Mg Cap, 100 MG PO BID for 7 Days, #14 CAP Prov:CARMINE VANEGAS HEALTH ECONOMIST 07/30/23 Albuterol Sulfate (VENTOLIN MDI) 90 Mcg Ih, 90 MCG IN QID, #1 INH 0 Refills Prov:TIERA RAVI 05/20/21 Methocarbamol (Methocarbamol) 750 Mg Tab, 750 MG PO QHSP PRN for 20 Days, #20 TAB Prov:ISABELLA HYDE 05/04/21 Ibuprofen (Ibuprofen) 800 Mg Tab, 800 MG PO Q8HP PRN, #30 TAB Prov:MARY ELLENJUANANMOL MUNOZ 05/04/21 Past Medical History PAST MEDICAL HISTORY: Kidney Stones, UTI'S Surgical History: Cholecystectomy PREP COOK History: Denies all PREP COOK Hx Family History Family History: Reviewed,noncontributory to illness, Unknown Social History Smoker: Quit Greater Than 1 Year Alcohol: Occasionally Drugs: Marijuana Lives In: Home Constitutional: denies: chills, diaphoresis, fatigue, fever, malaise, sweats, weakness, others EENTM: denies: blurred vision, double vision, ear bleeding, ear discharge, ear drainage, ear pain, ear ringing, eye pain, eye redness, hearing loss, mouth pain, mouth swelling, nasal discharge, nose bleeding, nose congestion, nose pain, photophobia, tearing, throat pain, throat swelling, voice changes, others Respiratory: denies: cough, hemoptysis, orthopnea, SOB at rest, shortness of breath, SOB with excertion, stridor, wheezing, others Cardiovascular: denies: chest pain, dizzy spells, diaphoresis, Dyspnea on exertion, edema, irregular heart beat, left arm pain, lightheadedness, palpitations, PND, syncope, others Gastrointestinal: denies: abdomen distended, abdominal pain, blood streaked bowels, constipated, diarrhea, dysphagia, difficulty swallowing, hematemesis, melena, nausea, poor appetite, poor fluid intake, rectal bleeding, rectal pain, vomiting, others Genitourinary: denies: abnormal vagina bleeding, burning, dyspareunia, dysuria, flank pain, frequency, hematuria, incontinence, pain, , vagina dischar ge, urgency, others Neurological: denies: dizziness, fainting, headache, left sided numbness, left sided weakness, numbness, paresthesia, pre-existing deficit, right sided numbness, right sided weakness, seizure, speech problems, tingling, tremors, weakness, others Musculoskeletal: denies: back pain, gout, joint pain, joint swelling, muscle pain, muscle stiffness, neck pain, others Integumetry: reports: wounds (Dog bite to left pinky and right pointer finger); denies: bruises, change in color, change in hair/nails, dryness, laceration, lesions, lumps, rash, others Allergic/Immunocompromised: denies: Difficulty Healing, Frequent Infections, Hives, Itching, others Hematologic/Lymphatic: denies: anemia, blood clots, easy bleeding, easy bruising, swollen glands, others Endocrine: denies: excessive hunger, excessive sweating, excessive thirst, excessive urination, flushing, intolerance to cold, intolerance to heat, unexplained weight gain, unexplained weight loss, others Psychiatric: denies: anxiety, bipolar disorder, depression, hopeless, panic disorder, schizophrenia, sleepless, suicidal, others Physical Exam General Appearance: No Apparent Distress, Normal HEENT: Pharynx Normal Neck: Full Range of Motion, Non-Tender Respiratory: Lungs Clear, No Respiratory Distress, Normal Breath Sounds Cardiovascular: No Murmur, Normal Peripheral Pulses, Regular Rate/Rhythm Breast Exam: Deferred Gastrointestinal: Non Tender, Soft Genitalia: Deferred Pelvic: Deferred Rectal: Deferred Extremities: Normal capillary refill, Normal inspection, Normal range of motion, Non-tender, No pedal edema Musculoskeletal : Apperance: Normal Neurologic: Alert, preschool paraprofessional II-XII nml as Tested, No Motor Deficits, Normal Affect, Normal Mood, No Sensory Deficits Cerebellar Function: Normal Reflexes: Normal Skin: Dry, Normal Color, Warm, Wounds (Superficial puncture wound to left hand 5th finger and superficial abrasion to right hand pointer finger no noted bleeding, or drainage or erythema strength sensory motion intact cap refill less than 3 seconds.) Lymphatic: No Adenopathy Was a procedure done? Was a procedure done?: No Differential Diagnosis (INTG) Differential Diagnosis: Cellulitis, Contusion, Hematoma, Puncture Wound X-Ray, Labs, Meds, VS Vital Signs Date Time Temp Pulse Resp B/P (MAP) Pulse Ox O2 Delivery O2 Flow Rate FiO2 07/25/24 21:00 88 19 98 Room Air 07/25/24 21:00 97.8 88 19 116/73 (87) 98 97.8 07/25/24 19:40 97.8 107 18 125/92 (103) 99 97.8 Current Medications Medications (Trade) Dose Ordered Sig/Andrew Route Start Time Stop Time Status Last Admin Diphtheria/ Tetanus/Acell Pertussis (Boostrix T-Dap) 0.5 ml ONCE ONCE IM 07/25/24 20:45 07/25/24 20:46 DC 07/25/24 21:03 Acetaminophen/ Hydrocodone Bitart ([place] 5/325MG Tab) 1 tab ONCE ONCE PO 07/25/24 20:45 07/25/24 20:46 DC 07/25/24 21:02 X-Ray, Labs, Meds, VS Comment Wounds cleansed and dressed. Tdap given. Patient given [place] 5 mg p.o. reports improvement in pain and function requesting discharge at this time. Script prophylactic antibiotics. Advised to take medications as prescribed side effects discussed. Follow up in 2 days at urgent care, her PCP, or back here for wound re-evaluation. [id number] Tylenol or Motrin as needed for the pain per labeled dosing instructions. ER return precautions given patient aggie cates understanding and agrees with discharge plan of care. Time of 1ST Reevaluation: 19:30 Reevaluation 1ST: Unchanged Time of 2ND Reevaluation: 20:31 Reevaluation 2ND: Improved Patient Education/Counseling: Diagnosis, Treatment, Prognosis, Need For Follow Up Family Education/Counseling: No Family Present Departure 1 Departure Time of Disposition: 20:32 Impression: Primary Impression: Dog bite of hand Qualified Codes: S61.452A - Open bite of left hand, initial encounter; W54.0XXA - Bitten by dog, initial encounter Disposition: 01 HOME / SELF CARE / HOMELESS Condition: Stable e-Prescriptions Amoxicillin & Pot Clavulanate (AUGMENTIN TABLET) 875 Mg Tb 875 MG PO BID for 7 Days, #14 TAB Prov: MADDY BALDWIN 07/25/24 Discharged With: Self Critical Care Note Critical Care Time?: No Stability Stability form required: No MADDY BALDWIN July 25, 2024 20:02
[2024-07-25] MEDS ORDERED: AUG875T PO (20:32)
[2024-07-25 21:00] VITALS: BP 116/73; PULSE 88; RESP 19; TEMP 97.8; O2SAT 98
[2024-07-25] MEDS: HYDROcodone-ACET 5/325MG TAB PO ONE (21:02)
[2024-07-25] MEDS: TETANUS-DIPTH-ACEL PERTUSSIS 0.5ML SYR Tdap IM ONE (21:03)
== END 2024-07-25 21:18 | disposition home or self-care (01) ==
LOC: ER 19:29
DX: S61.237A Puncture wound without foreign body of left little finger without damage to nail, initial encounter (principal); S60.410A Abrasion of right index finger, initial encounter; F12.90 Cannabis use, unspecified, uncomplicated; Z88.1 Allergy status to other antibiotic agents; Z90.49 Acquired absence of other specified parts of digestive tract; W54.0XXA Bitten by dog, initial encounter; Y92.009 Unspecified place in unspecified non-institutional (private) residence as the place of occurrence of the external cause; Y93.89 Activity, other specified; Y99.8 Other external cause status
CPT/HCPCS: 90471; 90715

== ENCOUNTER 2024-10-30 20:58 | Emergency (ER) | payer MEDICAID ==
[~2024-10-30] VITALS: Ht 182.9 cm; Wt 162.4 kg
[2024-10-30] MEDS: ONDANSETRON HCL 4 MG/2 ML VIAL IV ONE (22:15)
[2024-10-30] MEDS: MORPHINE SULFATE 4 MG/ML SYR/VIAL IV ONE (22:39)
--- NOTE | 2024-10-30 22:50 | ED.PDOC ---
General HPI Comments 34-year-old female with a history of kidney stones brought in by private car complaining of right-sided flank pain since 10/11/24. Patient states she had a CT of her abdomen and pelvis performed on 10/14/2024 showed a 2 mm right renal stone. Since that time, she has had worsening of the right-sided flank pain, associated with nausea and vomiting. She denies any fever, dysuria or hematuria. Chief Complaint: Flank Pain Time Seen by MD: 23:00 Primary Care Provider: Sulema Reviewed notes: Nurses Notes Allergies: Coded Allergies: Gemfibrozil (Verified Allergy, Unknown, 07/04/18) Home Meds Active Scripts Ondansetron Odt 4MG Tab (ZOFRAN PO) 4 Mg Tb, 4 MG PO TID PRN, #30 TAB Prn nausea/vomiting ODT TAB-DISSOLVE IN MOUTH, THEN SWALLOW Prov:CITLALY TOMAS MD 10/31/24 Hydrocodone-Acetaminophen (Hydrocodone Bitartrate/AC 5-325 mg) 1 Tab Tab, 1 TAB PO Q6HP PRN, #20 TAB Prn breakthrough pain Prov:CITLALY TOMAS MD 10/31/24 Ibuprofen Micronized (Ibuprofen) 800 Mg Tab, 800 MG PO Q8HP PRN, #30 TAB Prn pain, take with food Prov:CITLALY TOMAS MD 10/31/24 Cyclobenzaprine HCl (Cyclobenzaprine Hydrochlo) 5 Mg Tab, 5 MG PO QHSP, #14 TAB 0 Refills Prov:LOUIS MORGAN 11/12/23 Ibuprofen (Ibuprofen) 800 Mg Tab, 1 TAB PO TID PRN, #30 TAB 0 Refills Prov:LOUIS MORGAN 11/12/23 Ondansetron Odt 4MG Tab (ZOFRAN PO) 4 Mg Tb, 4 MG PO Q8HPRN PRN, #30 TAB ODT TAB-DISSOLVE IN MOUTH, THEN SWALLOW Prov:LIZZIE BOYER MD 08/03/23 Ondansetron Odt 4MG Tab (ZOFRAN PO) 4 Mg Tb, 4 MG PO TID PRN, #20 TAB ODT TAB-DISSOLVE IN MOUTH, THEN SWALLOW Prov:CARMINE VANEGAS 07/30/23 Nitrofurantoin Monohydrate Mac (Macrobid) 100 Mg Cap, 100 MG PO BID for 7 Days, #14 CAP Prov:CARMINE VANEGAS 07/30/23 Albuterol Sulfate (VENTOLIN MDI) 90 Mcg Ih, 90 MCG IN QID, #1 INH 0 Refills Prov:TIERA RAVI 05/20/21 Methocarbamol (Methocarbamol) 750 Mg Tab, 750 MG PO QHSP PRN for 20 Days, #20 TAB Prov:ISABELLA HYDE 05/04/21 Ibuprofen (Ibuprofen) 800 Mg Tab, 800 MG PO Q8HP PRN, #30 TAB Prov:ISABELLA HYDE 05/04/21 Information Source: Patient Mode of Arrival: Ambulatory Severity: Moderate Inability to void: Mild Timing: Days Duration: Intermittent Has not urinated for: Minutes Symptoms: Other (Right flank pain) History of: Kidney stone Location: (R) Flank associated signs and symptoms: Nausea, Vomiting, Flank Pain, Back Pain Past Medical History PAST MEDICAL HISTORY: Kidney Stones, UTI'S Past Medical History (Other): Mitral valve prolapse Surgical History: Cholecystectomy BPM ANALYST History: Denies all BPM ANALYST Hx Family History Family History: Reviewed,noncontributory to illness, Unknown Social History Smoker: Quit Greater Than 1 Year Alcohol: Occasionally Drugs: Marijuana Lives In: Home Constitutional: denies: chills, diaphoresis, fatigue, fever, malaise, sweats, weakness, others EENTM: denies: blurred vision, double vision, ear bleeding, ear discharge, ear drainage, ear pain, ear ringing, eye pain, eye redness, hearing loss, mouth pain, mouth swelling, nasal discharge, nose bleeding, nose congestion, nose pain, photophobia, tearing, throat pain, throat swelling, voice changes, others Respiratory: denies: cough, hemoptysis, orthopnea, SOB at rest, shortness of breath, SOB with excertion, stridor, wheezing, others Cardiovascular: denies: chest pain, dizzy spells, diaphoresis, Dyspnea on exertion, edema, irregular heart beat, left arm pain, lightheadedness, palpitations, PND, syncope, others Gastrointestinal: reports: nausea, vomiting; denies: abdomen distended, abdominal pain, blood streaked bowels, constipated, diarrhea, dysphagia, difficulty swallowing, hematemesis, melena, poor appetite, poor fluid intake, rectal bleeding, rectal pain, others Genitourinary: reports: flank pain; denies: abnormal vagina bleeding, burning, dyspareunia, dysuria, frequency, hematuria, incontinence, pain, , vagina discharge, urgency, others Neurological: denies: dizziness, fainting, headache, left sided numbness, left sided weakness, numbness, paresthesia, pre-existing deficit, right sided numbness, right sided weakness, seizure, speech problems, tingling, tremors, weakness, others Musculoskeletal: denies: back pain, gout, joint pain, joint swelling, muscle pain, muscle stiffness, neck pain, others Integumetry: denies: bruises, change in color, change in hair/nails, dryness, laceration, lesions, lumps, rash, wounds, others Allergic/Immunocompromised: denies: Difficulty Healing, Frequent Infections, Hives, Itching, others Hematologic/Lymphatic: denies: anemia, blood clots, easy bleeding, easy brui sing, swollen glands, others Endocrine: denies: excessive hunger, excessive sweating, excessive thirst, ex cessive urination, flushing, intolerance to cold, intolerance to heat, unexplained weight gain, unexplained weight loss, others Psychiatric: denies: anxiety, bipolar disorder, depression, hopeless, panic disorder, schizophrenia, sleepless, suicidal, others All Other Systems: Reviewed and Negative (Comprehensive systems review obtained and negative except for what is stated in the HPI.) Physical Exam General Appearance: No Apparent Distress, Obese HEENT: Other (Pupils and face symmetric. Moist mucous membranes.) Neck: Full Range of Motion, Normal Inspection Respiratory: Lungs Clear, No Accessory Muscle Use, No Respiratory Distress, Normal Breath Sounds Cardiovascular: No Edema, No JVD, Regular Rate/Rhythm Breast Exam: Deferred Gastrointestinal: Soft, Other (Right upper flank tenderness to palpation) Genitalia: Deferred Pelvic: Deferred Rectal: Deferred Extremities: Normal inspection, Normal range of motion, Non-tender, No pedal edema Neurologic: Alert (Oriented x4), Normal Affect, Normal Mood, Other (Ambulatory) Cerebellar Function: NOT DONE Reflexes: NOT DONE Skin: Dry, Normal Color, Warm Lymphatic: NOT DONE Was a procedure done? Was a procedure done?: No Differential Diagnosis Kidney stone (Female): Musculoskeletal pain, Pyelonephritis, Renal failure, Strain, Urinary obstruction, Urolithiasis Urinary Problem (Female): Pyelonephritis, Urinary retention, Urolithiasis, UTI X-Ray, Labs, Meds, VS Vital Signs Date Time Temp Pulse Resp B/P (MAP) Pulse Ox O2 Delivery O2 Flow Rate FiO2 10/31/24 01:09 73 17 99 Room Air 10/31/24 01:09 97.9 73 16 119/72 (88) 99 97.9 10/30/24 23:01 74 18 98 Room Air* 0 21 10/30/24 23:00 98.3 74 18 140/83 (102) 98 98.3 10/30/24 21:00 98.3 84 16 120/78 96 98.3 Lab Test 10/30/24 22:28 10/30/24 22:22 Range/Units Urine Color Yellow Yellow Urine Clarity Clear Clear Urine pH 6.0 5.0-9.0 Urine Specific [place] 1.025 1.001-1.035 Urine Protein Normal Negative Urine Ketones Negative Negative Urine Blood Negative Negative /uL Urine Nitrite Negative Negative Urine Bilirubin Negative Negative Urine Urobilinogen Normal Negative mg/dL Urine Leukocyte Esterase Negative Negative /uL Urine Glucose Normal Normal mg/dL Urine Test Negative Negative White Blood Count 10.7 4.4-10.8 10^3/uL Red Blood Count 4.62 4.0-5.20 10^6/uL Hemoglobin 12.9 12.2-16.2 g/dL Hematocrit 37.8 36.0-46.0 % Mean Corpuscular Volume 81.7 80.0-100.0 fL Mean Corpuscular Hemoglobin 27.8 L 28.0-32.0 pg Mean Corpuscular Hemoglobin Concent 34.0 32.0-36.0 g/dL Red Cell Distribution Width 14.5 H 11.8-14.3 % Platelet Count 309 140-450 10^3/uL Mean Platelet Volume 8.3 6.9-10.8 fL Neutrophils (%) (Auto) 67.6 37.0-80.0 % Lymphocytes (%) (Auto) 23.4 10.0-50.0 % Monocytes (%) (Auto) 7.3 0.0-12.0 % Eosinophils (%) (Auto) 1.5 0.0-7.0 % Basophils (%) (Auto) 0.2 0.0-2.0 % Neutrophils # (Auto) 7.2 1.6-8.6 10 ^3/uL Lymphocytes # (Auto) 2.5 0.4-5.4 10 ^3/uL Monocytes # (Auto) 0.8 0-1.3 10 ^3/uL Eosinophils # (Auto) 0.2 0-0.8 10 ^3/uL Basophils # (Auto) 0 0-0.2 10 ^3/uL Nucleated Red Blood Cells 0.0 % Sodium Level 139 136-145 mmol/L Potassium Level 3.5 3.5-5.1 mmol/L Chloride Level 104 98-107 mmol/L Carbon Dioxide Level 25 20-31 mmol/L Anion Gap 10 5-15 Blood Urea Nitrogen 13 9-23 mg/dL Creatinine 0.57 0.550-1.02 mg/dL Glomerular Filtration Rate Calc 121 >90 mL/min BUN/Creatinine Ratio 22.8 H 10.0-20.0 Serum Glucose 82 74-106 mg/dL Calcium Level 9.4 8.7-10.4 mg/dL Current Medications Medications (Trade) Dose Ordered Sig/Andrew Route Start Time Stop Time Status Last Admin Sodium Chloride 1,000 ml @ 1,000 mls/hr Q1H ONCE IV 10/30/24 22:15 10/30/24 23:14 DC 10/30/24 23:00 Ketorolac Tromethamine (Toradol Injection) 30 mg ONCE ONCE IV 10/30/24 22:45 10/30/24 22:46 DC 10/30/24 23:00 COMPUTERIZED TOMOGRAPHY ABDOMEN AND PELVIS WITHOUT CONTRAST REASON FOR EXAM: r flank pain COMPARISON: CT CT AB PEL WO CON-NO ORAL OR IV on DOS: 12/05/23, CT CT AB PEL WITH IV CON ONLY on DOS: 07/31/23, US PELVIC on DOS: 10/02/22 TECHNIQUE: Spiral scans were acquired from the diaphragm to the symphysis pubis without intravenous contrast administration. 2-D coronal and sagittal reformatted images were provided. Radiation optimization: All CT scans at this facility use at least one of these dose optimization techniques: Automated exposure control mA and/or kV adjustment per patient size (includes targeted exams where dose is matched to clinical indication) or iterative reconstruction. RADIATION DOSE: CTDI: 27.62 mGy DLP: 1946.74 mGy-cm FINDINGS: The lung bases are grossly clear. There is no pleural effusion. There is no pericardial effusion. The spleen is not enlarged. The liver is normal in size and contour. Evaluation of the abdominal organs is suboptimal in the absence of intravenous contrast. The gallbladder is surgically absent. Unenhanced appearance of the pancreas is unremarkable. The adrenal glands are grossly unremarkable. The kidneys are similar in size. There is a 2 mm nonobstructive calculus at the i nterpolar region of the right kidney. There is no hydronephrosis of either kidney. No ureteral or bladder calculus is identified. There is no abdominal aortic aneurysm. There is no pathologic lymphadenopathy by size criteria. No free fluid is identified in the abdomen or pelvis. There is an approximately 3.3 x 4.1 cm right ovarian cyst. The uterus and ovaries are otherwise unremarkable. The colonic stool burden is small. The appendix is normal. There is an approximately 6.1 cm ventral abdominal wall fascial defect in the epigastric region through which herniates abdominal fat and transverse colon without evidence of obstruction. There is no distention of the small bowel. No acute osseous abnormality is identified. There is severe disc height loss at L5-S1 with vacuum phenomenon. IMPRESSION: Unchanged appearance of approximately 2 mm nonobstructive calculus of the interpolar region of the right kidney. No hydronephrosis of either kidney. There is a 4.1 cm right ovarian cyst. This may be a cause of pain. Normal appendix Epigastric ventral abdominal wall fascial defect with herniating fat and transverse colon. X-Ray, Labs, Meds, VS Comment 34-year-old female with a history of kidney stones complaining of right flank pain, nausea and vomiting Vitals unremarkable Exam remarkable for right upper flank tenderness to palpation Rhythm strip independently interpreted by me: Sinus rhythm, rate 84, no ectopy. CT abdomen and pelvis IMPRESSION: Unchanged appearance of approximately 2 mm nonobstructive calculus of the interpolar region of the right kidney. No hydronephrosis of either kidney. There is a 4.1 cm right ovarian cyst. This may be a cause of pain. Normal appendix Epigastric ventral abdominal wall fascial defect with herniating fat and transverse colon. CBC, basic metabolic panel, UA and urine unremarkable Patient treated with the following in the ED: 1 L 0.9 normal saline IV bolus, Zofran 4 mg IV, Toradol 30 mg IV with improvement of her symptoms. On re-evaluation, vitals were stable and patient stated she was comfortable being discharged. Patient appears stable for discharge with a prescription for pain medications, antiemetics and close follow-up with her primary physician. Patient will also be referred to Urology, Dr. Mejia Time of 1ST Reevaluation: 23:02 Reevaluation 1ST: Unchanged Patient Education/Counseling: Diagnosis, Treatment, Need For Follow Up Family Education/Counseling: No Family Present SEPSIS Sepsis Screen Date sepsis recognized/suspect: Oct 30, 2024 Time Sepsis recognized/suspect: 2099 Recent Procedure: No On Antibiotic Therapy: No Respiratory Rate >20: No Heart Rate >90: No Temp<36 C (96.8 F) or >38.3 C: No SBP <90 or MAP <65 mmHG: No New Acute Mental Status Change: No Is the patient on CPAP, BIPAP,: No Physician Orders Ct Ab Pel Wo Con-No Oral Or Iv (10/30/24 22:13) Vital Signs Date Time Temp Pulse Resp B/P (MAP) Pulse Ox O2 Delivery O2 Flow Rate FiO2 10/31/24 01:09 73 17 99 Room Air 10/31/24 01:09 97.9 73 16 119/72 (88) 99 97.9 10/30/24 23:01 74 18 98 Room Air* 0 21 10/30/24 23:00 98.3 74 18 140/83 (102) 98 98.3 10/30/24 21:00 98.3 84 16 120/78 96 98.3 Laboratory Tests Test 10/30/24 22:22 White Blood Count 10.7 10^3/uL (4.4-10.8) Medications Medications Dose Ordered Sig/Andrew Route Start Time Stop Time Status Last Admin Dose Admin Ketorolac Tromethamine 30 mg ONCE ONCE IV 10/30/24 22:45 10/30/24 22:46 DC 10/30/24 23:00 Sodium Chloride 1,000 ml @ 1,000 mls/hr Q1H ONCE IV 10/30/24 22:15 10/30/24 23:14 DC 10/30/24 23:00 Departure 1 Departure Time of Disposition: 00:48 Impression: Primary Impression: Nephrolithiasis Disposition: HOME / SELF CARE / HOMELESS Condition: Stable Referrals: SHELBY MEJIA MD Additional Instructions: Your CT scan was similar to your previous scan, showing a 2 mm right kidney stone. I have enclosed a report below. Your blood tests and urine tests were unremarkable. I have prescribed pain medication and medication for nausea. F ollow-up with your primary doctor in 1-2 days for referral to an urologist for further evaluation of your kidney stone. Alternatively, follow-up directly with Dr. Mejia. [place] [address] Ph: [phone] DIAGNOSTIC IMAGING Diagnostic Imaging Report : [id number] Signed PATIENT: BRENT LR ACCT: [id number] UNIT: [id number] : 1990 LOC: ER ROOM / BED: / AGE / SEX: 34 / F ADM STATUS: REG ER SERVICE 12 ORDERING PHYSICIAN: CITLALY TOMAS MD PROCEDURE(s): ABPL - CT AB PEL WO CON-NO ORAL OR IV REASON: r flank pain ORDER NUMBER(s): [id number], ACCESSION NUMBER(s): [id number] COMPUTERIZED TOMOGRAPHY ABDOMEN AND PELVIS WITHOUT CONTRAST REASON FOR EXAM: r flank pain COMPARISON: CT CT AB PEL WO CON-NO ORAL OR IV on DOS: 12/05/23, CT CT AB PEL WITH IV CON ONLY on DOS: 07/31/23, US PELVIC on DOS: 10/02/22 TECHNIQUE: Spiral scans were acquired from the diaphragm to the symphysis pubis without intravenous contrast administration. 2-D coronal and sagittal reformatted images were provided. Radiation optimization: All CT scans at this facility use at least one of these dose optimization techniques: Automated exposure control mA and/or kV adjustment per patient size (includes targeted exams where dose is matched to clinical indication) or iterative reconstruction. RADIATION DOSE: CTDI: 27.62 mGy DLP: 1946.74 mGy-cm FINDINGS: The lung bases are grossly clear. There is no pleural effusion. There is no pericardial effusion. The spleen is not enlarged. The liver is normal in size and contour. Evaluation of the abdominal organs is suboptimal in the absence of intravenous contrast. The gallbladder is surgically absent. Unenhanced appearance of the pancreas is unremarkable. The adrenal glands are grossly unremarkable. The kidneys are similar in size. There is a 2 mm nonobstructive calculus at the interpolar region of the right kidney. There is no hydronephrosis of either kidney. No ureteral or bladder calculus is identified. There is no abdominal aortic aneurysm. There is no pathologic lymphadenopathy by size criteria. No free fluid is identified in the abdomen or pelvis. There is an approximately 3.3 x 4.1 cm right ovarian cyst. The uterus and ovaries are otherwise unremarkable. The colonic stool burden is small. The appendix is normal. There is an approximately 6.1 cm ventral abdominal wall fascial defect in the epigastric region through which herniates abdominal fat and transverse colon without evidence of obstruction. There is no distention of the small bowel. No acute osseous abnormality is identified. There is severe disc height loss at L5-S1 with vacuum phenomenon. IMPRESSION: Unchanged appearance of approximately 2 mm nonobstructive calculus of the interpolar region of the right kidney. No hydronephrosis of either kidney. There is a 4.1 cm right ovarian cyst. This may be a cause of pain. Normal appendix Epigastric ventral abdominal wall fascial defect with herniating fat and transverse colon. e-Prescriptions Ondansetron Odt 4MG Tab (ZOFRAN PO) 4 Mg Tb 4 MG PO TID PRN, #30 TAB Prn nausea/vomiting ODT TAB-DISSOLVE IN MOUTH, THEN SWALLOW Prov: CITLALY TOMAS MD 10/31/24 Hydrocodone-Acetaminophen (Hydrocodone Bitartrate/AC 5-325 mg) 1 Tab Tab 1 TAB PO Q6HP PRN, #20 TAB Prn breakthrough pain Prov: CITLALY TOMAS MD 10/31/24 Ibuprofen Micronized (Ibuprofen) 800 Mg Tab 800 MG PO Q8HP PRN, #30 TAB Prn pain, take with food Prov: CITLALY TOMAS MD 10/31/24 Discharged With: Friend Critical Care Note Critical Care Time?: No Stability Stability form required: No Heart Score Heart Score: Heart Score Response (Comments) Value History N/A 0 EKG N/A 0 Age N/A 0 Risk Factors N/A 0 Troponin N/A 0 Total 0 I personally scribed for CITLALY TOMAS MD (LISACORDELL) on 10/30/24 at 22:49. Electronically submitted by Jose Hopkins ([facility]). I personally scribed for CITLALY TOMAS MD (LISACORDELL) on 10/30/24 at 23:02. Electronically submitted by Jose Hopkins ([facility]). I personally scribed for CITLALY TOMAS MD (LISACORDELL) on 10/31/24 at 00:30. Electronically submitted by Jose Hopkins ([facility]). CITLALY TOMAS MD Oct 30, 2024 22:49
[2024-10-30] MEDS: KETOROLAC TROMETH 30 MG/ML 1ML VIAL IV ONE (23:00)
[2024-10-30] MEDS: SODIUM CHLORIDE 0.9% 1,000 ML IV ONE (23:00)
[2024-10-30 23:01] VITALS: PULSE 74; RESP 18; O2SAT 98
[2024-10-30 23:01] LABS: Hematocrit 37.8 % (36.0-46.0); Hemoglobin 12.9 g/dL (12.2-16.2); Mean Corpuscular Hemoglobin 27.8 pg (28.0-32.0); Mean Corpuscular Volume 81.7 fL (80.0-100.0); Nucleated Red Blood Cells % 0.0 %
[2024-10-30 23:13] LABS: Chloride 104 mmol/L (98-107); Potassium 3.5 mmol/L (3.5-5.1); Sodium 139 mmol/L (136-145)
[2024-10-30 23:14] LABS: Anion Gap 10 (5-15); Calcium 9.4 mg/dL (8.7-10.4); Carbon Dioxide 25 mmol/L (20-31)
[2024-10-30 23:19] LABS: BUN/Creatinine Ratio 22.8 (10.0-20.0); Blood Urea Nitrogen 13 mg/dL (9-23); Glucose 82 mg/dL (74-106)
[2024-10-30 23:26] LABS: Urine Protein, UAD Normal (Negative)
--- NOTE | 2024-10-31 00:09 | DVH ---
COMPUTERIZED TOMOGRAPHY ABDOMEN AND PELVIS WITHOUT CONTRAST REASON FOR EXAM: r flank pain COMPARISON: CT CT AB PEL WO CON-NO ORAL OR IV on DOS: 12/05/23, CT CT AB PEL WITH IV CON ONLY on DOS: 07/31/23, US PELVIC on DOS: 10/02/22 TECHNIQUE: Spiral scans were acquired from the diaphragm to the symphysis pubis without intravenous c ontrast administration. 2-D coronal and sagittal reformatted images were provided. Radiation optimiza tion: All CT scans at this facility use at least one of these dose optimization techniques: Automated exposure control mA and/or kV adjustment per patient size (includes targeted exams where dose is mat ched to clinical indication) or iterative reconstruction. RADIATION DOSE: CTDI: 27.62 mGy DLP: 1946.74 mGy-cm FINDINGS: The lung bases are grossly clear. There is no pleural effusion. There is no pericardial effusion. The spleen is not enlarged. The liver is normal in size and contour. Evaluation of the abdominal or marina is suboptimal in the absence of intravenous contrast. The gallbladder is surgically absent. Une nhanced appearance of the pancreas is unremarkable. The adrenal glands are grossly unremarkable. The kidneys are similar in size. There is a 2 mm nonobstructive calculus at the interpolar region of the right kidney. There is no hydronephrosis of either kidney. No ureteral or bladder calculus is identif ied. There is no abdominal aortic aneurysm. There is no pathologic lymphadenopathy by size criteria. No free fluid is identified in the abdomen or pelvis. There is an approximately 3.3 x 4.1 cm right ovarian cyst. The uterus and ovaries are otherwise unremarkable. The colonic stool burden is small. The appendix is normal. There is an approximately 6.1 cm ventral abdominal wall fascial defect in th e epigastric region through which herniates abdominal fat and transverse colon without evidence of ob struction. There is no distention of the small bowel. No acute osseous abnormality is identified. Th ere is severe disc height loss at L5-S1 with vacuum phenomenon. IMPRESSION: Unchanged appearance of approximately 2 mm nonobstructive calculus of the interpolar region of the ri ght kidney. No hydronephrosis of either kidney. There is a 4.1 cm right ovarian cyst. This may be a cause of pain. Normal appendix Epigastric ventral abdominal wall fascial defect with herniating fat and transverse colon.
[2024-10-31] MEDS ORDERED: IBUP-1455 PO (00:51)
[2024-10-31] MEDS ORDERED: ZOFR4T PO (00:51)
[2024-10-31] MEDS ORDERED: HYDR-4902 PO (00:51)
[2024-10-31 01:09] VITALS: BP 119/72; PULSE 73; RESP 17; TEMP 97.9; O2SAT 99
== END 2024-10-31 01:10 | disposition home or self-care (01) ==
LOC: ER 20:58
DX: N20.0 Calculus of kidney (principal); Z87.440 Personal history of urinary (tract) infections; Z87.442 Personal history of urinary calculi; Z90.49 Acquired absence of other specified parts of digestive tract
CPT/HCPCS: 36415; 74176; 80048; 81003; 81025; 85025; 96361; 96374; 99285; J1885; J7030; J2405